=== PATIENT | male | born 1980 | race Two or more races ===

== ENCOUNTER 2022-07-21 16:04 | Emergency (ER) | payer OTHER, SELFPAY ==
--- NOTE | ~2022-07-21 | XR_ITS ---
EXAMINATION: XR CHEST CLINICAL INFORMATION: Shortness of breath COMPARISON: Chest x-ray 06/03/2017 TECHNIQUE: PA and lateral views of the chest were obtained. FINDINGS: The cardiac and mediastinal contours is normal. There is no pulmonary vascular congestion. There is no acute airspace disease or pleural effusion. XR/XR chest 2V IMPRESSION: Normal chest.
[2022-07-21 16:10] VITALS: BP 153/97; PULSE 73; RESP 20; TEMP 36.8; O2SAT 96; BMI 28.5
[2022-07-21 16:37] LABS: COVID-19 Test Negative (Negative); IDNOW Serial# 55D5AD1C
--- NOTE | 2022-07-21 18:35 | ED_ITS ---
HPI - General Adult General Chief complaint: Upper Respiratory Symptoms Stated complaint: trouble breathing through nose, SOB Time Seen by Provider: 07/21/22 18:03 History of Present Illness HPI narrative: patient complains of nasal congestion, nose being blocked for about a week, there is no other shortness of breath no chest pain no wheezing no chest tightness, the only trouble breathing is close he cannot breathe through his nose but easily breathe through his mouth, there is no pain no headache no yellow nasal discharge no fever Related Data Previous Rx's Medication Instructions Recorded amoxicillin 500 mg capsule 500 mg PO TID 7 days #21 caps 07/21/22 cetirizine 10 mg capsule 10 mg PO DAILY PRN allergy 07/21/22 symptoms #30 caps fluticasone propionate 50 2 spray intranasal DAILY #16 grams 07/21/22 mcg/actuation nasal spray,suspension (Flonase Allergy Relief) prednisone 20 mg tablet 60 mg PO DAILY 4 days #12 tabs 07/21/22 Allergies Allergy/AdvReac Type Severity Reaction Status Date / Time aspirin [ASA] AdvReac Severe ANAPHYLAXIS Unverified 08/04/20 17:16 Review of Systems Review of Systems: Positive for nasal congestion Negative no fever no chills no dizziness or weakness no headache no neck pain no chest pain no cough no shortness of breath no abdomin painno vomiting Yes all other systems are reviewed and are negative PMFSH Past Medical History Source: nursing notes reviewed Social History Social History Advance Directives: No Advance Directives Information Provided: No Physical Exam ED Vital Signs: Vital Signs - 24 hr 07/21/22 16:10 Temperature 98.2 F Pulse Rate 73 Respiratory Rate 20 Blood Pressure 153/97 H Pulse Oximetry 96 Oxygen Delivery Method Room Air BMI result Body Mass Index 28.5 General appearance no acute distress The eyes there was some conjunctival redness but no discharge The nose was congested, there was mild discomfort with the head down mild discomfort when the sinuses were tapped The pharynx was clear no redness swelling or exudate mucous membranes moist Neck is supple Chest clear to auscultation bilateral with full symmetric equal breath sounds Heart no murmur Extremities full range of motion x4 Skin no rash Course Course Course Narrative: Patient is treated for sinus congestion and possible sinusitis with decon gestants antibiotic and steroids and antihistamines Medical Decision Making Lab Data Labs: Lab Results 07/21/22 Range/Units 16:15 COVID-19 ([facility]) Negative (Negative) COVID-19 Clin Com See Note Discharge Plan Discharge Clinical Impression: Sinusitis, Nasal congestion Patient Disposition: Home, Self-Care Additional Instructions: urine congested nose is probably from allergies and inflammations or using prednisone and Zyrtec Afrin 12 hour spray, , oxymetazoline, is available [id number]-gfk-[id number] for few dollars and it is the strongest decongestant 2-3 sprays in each nostril every 12 hours if needed Kvem-lll-pawwban there are saline washes for the nose which may help relieve congestion I wrote for Flonase which over several days may reduce inflammation in the sinuses and able Ng you to breathe better There jxof-rtx-[id number] decongestant pills which may be helpful as well Follow with primary doctor Return to the ER any time any worse condition or any concerns Prescriptions: New fluticasone propionate [Flonase Allergy Relief] 50 mcg/actuation spray,suspension 2 spray intranasal DAILY Qty: 16 0RF Rx Instructions: administer into each nostril cetirizine 10 mg capsule 10 mg PO DAILY PRN (Reason: allergy symptoms) Qty: 30 0RF amoxicillin 500 mg capsule 500 mg PO TID 7 Days Qty: 21 0RF prednisone 20 mg tablet 60 mg PO DAILY 4 Days Qty: 12 0RF Interventions: ED Discharge Assessment Last Done: 07/21/22 19:00 Discharge Date/Time: 07/21/22 19:01
[2022-07-21] MEDS: predniSONE 20 MG TABLET 60 MG PO (18:57)
[2022-07-21] MEDS: Oxymetazoline HCl 0.05 % Nasal 15 ML SPRAY 2 SPRAY NOSTRIL-B (18:57)
[2022-07-21] MEDS: Loratadine 10 MG TABLET PO (18:57)
== END 2022-07-21 19:01 | disposition home or self-care (01) ==
PROVIDERS: Emergency Provider Student in an Organized Health Care Education/Training Program
DX: J32.9 Chronic sinusitis, unspecified (principal); R09.81 Nasal congestion; Z20.822 Contact with and (suspected) exposure to COVID-19
CPT/HCPCS: 71046; 87635; 99282; 99283

== ENCOUNTER 2024-10-03 19:18 | Emergency (ER) | payer SELFPAY ==
--- NOTE | ~2024-10-03 | US_ITS ---
EXAMINATION: US ABDOMEN LIMITED CLINICAL INFORMATION: Right upper quadrant pain. COMPARISON: None available. TECHNIQUE: Real-time imaging of the gallbladder and common bile duct. FINDINGS: GALLBLADDER: The gallbladder is physiologically distended without evidence of stones, sludge, polyps, wall thickening or pericholecystic fluid. COMMON BILE DUCT: Normal in caliber measuring 0.3 cm in diameter. US/US abdomen limited IMPRESSION: Normal-appearing gallbladder and common bile duct. Electronically signed by: Saw Seaman MD 10/03/2024 09:30 PM EST
--- NOTE | 2024-10-03 19:55 | ED_ITS ---
HPI - Abdominal Pain General Chief Complaint: Abdominal Pain Stated Complaint: ate about 1/2hrs ago, a lot of upper abd pain Time Seen by Provider: 10/03/24 22:53 Source: patient Limitations: no limitations History of Present Illness ED Provider: Katherine Chen PA-C HPI narrative: 44-year-old male presents with epigastric pain for a month. Patient states he often develops a burning sensation in the epigastric region when he eats and drinks. Today, his symptoms worsened. Associated excessive eructation. Denies nausea and vomiting. Denies fevers. Related Data Previous Rx's ?Medication ?Instructions ?Recorded amoxicillin 500 mg capsule 500 mg PO TID 7 days #21 caps 07/21/22 cetirizine 10 mg capsule 10 mg PO DAILY PRN allergy 07/21/22 symptoms #30 caps fluticasone propionate 50 2 spray intranasal DAILY #16 grams 07/21/22 mcg/actuation nasal spray,suspension (Flonase Allergy Relief) prednisone 20 mg tablet 60 mg (3 x 20 mg) PO DAILY 4 days 07/21/22 #12 tabs sucralfate 100 mg/mL oral 10 ml PO QID PRN reflux #400 mL 10/03/24 suspension (Carafate) Allergies Allergy/AdvReac Type Severity Reaction Status Date / Time aspirin [ASA] AdvReac Severe ANAPHYLAXIS Verified 10/03/24 19:59 Review of Systems Review of Systems Yes all other systems are reviewed and are negative Constitutional: Denies fatigue and Denies fever(s) Cardiovascular: Denies chest pain and Denies dyspnea Respiratory: Denies cough and Denies dyspnea Gastrointestinal: Reports abdominal pain, Reports belching, Reports dyspepsia, Denies nausea and Denies vomiting Endocrine: Denies fatigue PMFSH Past Medical History Attestation statement: The following information was validated with the patient. Social History Social History Advance Directives: No Advance Directives Information Provided: No Do you have a plan to hurt others: No Plan Physical Exam ED Vital Signs: Vital Signs - 24 hr 10/03/24 19:56 10/03/24 22:28 Temperature 98.6 F 98.3 F Pulse Rate 70 62 Respiratory Rate 18 16 Blood Pressure 148/85 H 129/83 Pulse Oximetry 98 98 Oxygen Delivery Method Room Air Room Air BMI result Body Mass Index 28.1 Const Other: Alert, well-appearing Orientation/consciousness: patient oriented x3 Resp Other: Nonlabored respirations Cardio Other: Normal peripheral perfusion GI Other: Abdomen is soft, nondistended nontender no guarding Skin Other: Warm dry no rash Neuro General: patient oriented x3, no focal motor deficits and CN's II-XI intact bilaterally Psych Other: Calm cooperative Course Course Course Narrative: This is an RME: Additional HPI, ROS, PE not included below will be deferred to primary provider. RME assessment and note performed by: Sabrina Rao PA-C This is a [id number]-male who presents to the ER with complaints of epigastric pain. Patient reports that he has had intermittent symptoms for the last several weeks, worsening today when was out to dinner. He did not eat, he was only drinking fluids when suddenly he developed this symptom. He reports a burning pressure-like pain in his epigastrium. Endorsing nausea no vomiting. No history of abdominal surgeries. Plan: Labs, EKG, US, further ER eval needed. Medical Decision Making Medical Decision Making [facility] Narrative: 44-year-old male presents with epigastric pain for a month. Patient states he often develops a burning sensation in the epigastric region when he eats and drinks. Today, his symptoms worsened. Associated excessive eructation. Denies nausea and vomiting. Denies fevers. No chronic issues History: Per patient I have considered the following differential diagnoses: GERD, peptic ulcer disease, H pylori, perforated peptic ulcer, cholecystitis, biliary colic Plan: Given distribution of discomfort in nature of symptoms, I am considering biliary versus gastric etiology as cause for symptoms. Screening labs including LFTs and an ultrasound of the right upper quadrant was obtained from triage. No biliary pathology, LFTs are normal, other labs normal as well. The patient has poorly controlled GERD. Thought about perforated ulcer, however he has no peritoneal signs on exam. He could have H pylori. At the end of the day we will send with [facility], he needs to follow up with primary care, if his symptoms persist despite lifestyle and dietary modification, he will require additional testing and likely endoscopy. I have independently reviewed the following tests: Labs: No leukocytosis, not anemic, no electrolyte abnormalities noted Ultrasound right upper quadrant: US/US abdomen limited IMPRESSION: Normal-appearing gallbladder and common bile duct. Electronically signed by: Saw Seaman MD 10/03/2024 09:30 PM [facility] [place] 10/03/24 20:14 10/03/24 20:14 Labs: Lab Results 10/03/24 10/03/24 Range/Units 20:14 22:42 WBC 8.3 (4.8-10.8) X10*3/uL RBC 4.89 (4.60-5.80) X10*6/uL Hgb 13.7 L (14.0-18.0) g/dl Hct 39.4 L (42.0-52.0) % MCV 80.6 (80.0-98.0) fL MCH 28.0 (27.0-33.0) pg MCHC 34.8 (31.0-36.0) g/dl RDW 12.3 (11.0-16.0) % Plt Count 290 (160-400) X10*3/uL MPV 9.5 (9.4-12.4) fL Immature Gran % (Auto) 0.2 (0.0-0.4) % Neut % (Auto) 68.6 (45-73) % Lymph % (Auto) 18.0 L (20-40) % [place] % (Auto) 9.0 (2-11) % Eos % (Auto) 3.6 (0-4) % Baso % (Auto) 0.6 (0-2) % Lymph # (Auto) 1.5 (1.2-4.9) X10*3/uL [place] # (Auto) 0.8 (0.1-1.2) X10*3/uL Eos # (Auto) 0.3 (0.0-0.4) X10*3/uL Baso # (Auto) 0.1 (0.0-0.2) X10*3/uL Abs Immat Gran (auto) 0.02 (0.00-0.03) X10*3/uL Absolute Neuts (auto) 5.7 (2.0-8.3) x10*3/uL Absolute Nucleated RBC 0.000 (0.0-0.012) X10*3/uL Nucleated RBC % (auto) 0.0 (0.0-0.2) /100WBC Sodium 139 (135-145) mmol/L Potassium 3.7 (3.3-5.1) mmol/L Chloride 105 (96-108) mmol/L Carbon Dioxide 27 (22-29) mmol/L Anion Gap 11 L (12-20) BUN 11 (9-16) mg/dL Creatinine 0.86 (0.5-1.4) mg/dL Estim Creat Clear Calc 131.8 Estimated GFR > 60 Random Glucose 83 (60-115) mg/dL Calcium 9.0 (8.4-10.2) mg/dL Magnesium 2.3 (1.6-2.6) mg/dL Total Bilirubin 0.2 (0.0-1.0) mg/dL Direct Bilirubin < 0.2 (0.0-0.5) mg/dL AST 23 (5-37) U/L ALT 23 (0-40) U/L Alkaline Phosphatase 38 L (39-117) U/L Troponin I High Sens < 2.7 (<3.5-35.0) ng/L Total Protein 7.0 (6.5-8.0) g/dL Albumin 4.2 (3.5-5.0) g/dL Lipase 29 (8-78) U/L Urine Color Yellow Urine Appearance Clear Urine pH 6.0 (5.0-9.0) Ur Specific [place] 1.010 (1.005-1.025) Urine Protein Negative (Neg-Trace) mg/dL Urine Glucose (UA) Negative (Negative) mg/dL Urine Ketones Negative (Negative) mg/dL Urine Blood Negative (Negative) Urine Nitrite Negative (Negative) Ur Leukocyte Esterase Negative (Negative) Influenza Type A (PCR) NEGATIVE (Negative) Influenza Type B (PCR) NEGATIVE (Negative) RSV RNA Qual (PCR) NEGATIVE (Negative) SARS-CoV-2 RNA (RT-PCR) NEGATIVE (Negative) Discharge Plan Discharge Clinical Impression: GERD (gastroesophageal reflux disease) Patient Disposition: Home, Self-Care Instructions: Diet for Stomach Ulcers and Gastritis (ED), Gastroesophageal Reflux Disease (ED) Additional Instructions: All of your labs were normal, the ultrasound of the abdomen was normal as well. Your symptoms are consistent with a poorly controlled GERD or acid reflux. See home care instructions. There are numerous dietary triggers such as anything carbonated, alcohol, caffeine, mint, acidic food or spicy food. You have to determine what your dietary triggers are. Eating smaller more frequent meals throughout the day can help deter symptoms. Do not eat 3 hours before bed. Use the Carafate as needed for upper abdominal discomfort, this medication can be used 30 minutes prior to eating. You need to follow up with your primary care provider. If your symptoms persist, the next step would be a Gastroenterology consult for endoscopy. Prescriptions: New sucralfate [Carafate] 100 mg/mL suspension 10 ml PO QID PRN (Reason: reflux) Qty: 400 0RF Rx Instructions: swish in mouth and swallow; use after food/drink No Action fluticasone propionate [Flonase Allergy Relief] 50 mcg/actuation spray,suspension 2 spray intranasal DAILY Qty: 16 0RF Rx Instructions: administer into each nostril cetirizine 10 mg capsule 10 mg PO DAILY PRN (Reason: allergy symptoms) Qty: 30 0RF amoxicillin 500 mg capsule 500 mg PO TID 7 Days Qty: 21 0RF prednisone 20 mg tablet 60 mg PO DAILY 4 Days Qty: 12 0RF Print Language: Turkish
[2024-10-03 19:56] VITALS: BP 148/85; PULSE 70; RESP 18; TEMP 37; O2SAT 98; BMI 28.1
--- NOTE | 2024-10-03 19:59 | ECG_ITS ---
Test Reason : abd pain Blood Pressure : / mmHG Vent. Rate : 064 BPM Atrial Rate : 064 BPM P-R Int : 150 ms QRS Dur : 086 ms QT Int : 384 ms P-R-T Axes : 042 034 053 degrees QTc Int : 396 ms Normal sinus rhythm Normal ECG No previous ECGs available Referred By: Sabrina Rao Electronically Signed By:Mian Junior
[2024-10-03 20:19] LABS: MANUAL DIFF FLAG NO
[2024-10-03 20:20] LABS: Basophils Absolute Auto 0.1 X10*3/uL (0.0-0.2); Basophils Percent Auto 0.6 % (0-2); Eosinophils Absolute Auto 0.3 X10*3/uL (0.0-0.4); Eosinophils Percent Auto 3.6 % (0-4); Hematocrit 39.4 % (42.0-52.0); Hemoglobin 13.7 g/dl (14.0-18.0); Imm Gran Abs Auto 0.02 X10*3/uL (0.00-0.03); Imm Gran Pct Auto 0.2 % (0.0-0.4); Lymphocytes Absolute Auto 1.5 X10*3/uL (1.2-4.9); Mean Corpuscular HGB Conc 34.8 g/dl (31.0-36.0); Mean Corpuscular Volume 80.6 fL (80.0-98.0); Mean Platelet Volume 9.5 fL (9.4-12.4); Monocytes Absolute Auto 0.8 X10*3/uL (0.1-1.2); Neutrophils Absolute Auto 5.7 x10*3/uL (2.0-8.3); Neutrophils Percent Auto 68.6 % (45-73); Platelet Count 290 X10*3/uL (160-400); Red Blood Count 4.89 X10*6/uL (4.60-5.80); Red Cell Distribution Width 12.3 % (11.0-16.0); White Blood Count 8.3 X10*3/uL (4.8-10.8)
[2024-10-03 20:36] LABS: Alanine Aminotransferase 23 U/L (0-40); Albumin Level 4.2 g/dL (3.5-5.0); Alkaline Phosphatase 38 U/L (39-117); Anion Gap 11 (12-20); Aspartate Amino Transferase 23 U/L (5-37); Bilirubin Direct < 0.2 mg/dL (0.0-0.5); Bilirubin Total 0.2 mg/dL (0.0-1.0); Blood Urea Nitrogen 11 mg/dL (9-16); Carbon Dioxide 27 mmol/L (22-29); Chloride 105 mmol/L (96-108); Creatinine Clr Calc Pharmacy 131.8; Estimated Glomerular Filt Rate > 60; Glucose Random 83 mg/dL (60-115); Lipase 29 U/L (8-78); Magnesium 2.3 mg/dL (1.6-2.6); Potassium 3.7 mmol/L (3.3-5.1); Sodium 139 mmol/L (135-145)
[2024-10-03 20:44] LABS: Troponin-I High Sensitivity < 2.7 ng/L (<3.5-35.0)
[2024-10-03 20:58] LABS: Influenza A PCR NEGATIVE (Negative); Influenza B PCR NEGATIVE (Negative); Resp Syncy Virus RNA Qual PCR NEGATIVE (Negative); SARS COV2 PCR INHOUSE NEGATIVE (Negative)
[2024-10-03 22:28] VITALS: BP 129/83; PULSE 62; RESP 16; TEMP 36.8; O2SAT 98
[2024-10-03 22:47] LABS: Appearance Urine Clear; Color Urine Yellow; Glucose Urine UA Negative (Negative); Leukocyte Esterase Urine Negative (Negative); Nitrite Urine Negative (Negative); Urine Blood Negative (Negative); Urine Ketones Negative (Negative); Urine Protein Negative (Neg-Trace)
[2024-10-03] MEDS: Sucralfate Oral Suspension 1 GM/10 ML ORAL.SUSP PO (23:35)
[2024-10-03 23:43] VITALS: BP 125/83; PULSE 60; RESP 12; TEMP 36.7; O2SAT 99
== END 2024-10-03 23:44 | disposition home or self-care (01) ==
PROVIDERS: Physician Assistant Medical; Emergency Provider Emergency Medicine
DX: K21.9 Gastro-esophageal reflux disease without esophagitis (principal); R10.11 Right upper quadrant pain; Z03.818 Encounter for observation for suspected exposure to other biological agents ruled out
CPT/HCPCS: 0241U; 36415; 76705; 80048; 80076; 81003; 83690; 83735; 84484; 85025; 93005; 99284; 99285

== ENCOUNTER → 2024-10-03 19:59 | Outpatient (BNV) | payer OTHER, SELFPAY | PROVIDERS: Emergency Provider Emergency Medicine; Visit Provider Internal Medicine Cardiovascular Disease | DX: R10.9 Unspecified abdominal pain (principal) | CPT/HCPCS: 93010 ==